=== PATIENT | male | born 1990 | race Two or more races ===

== ENCOUNTER 2021-11-09 17:44 | Emergency (ER) | payer OTHER ==
[~2021-11-09] VITALS: Ht 172.7 cm; Wt 83.9 kg
[2021-11-10] MEDS ORDERED: KETO10TA2 PO (02:03)
[2021-11-10] MEDS ORDERED: NORFLEX100MG PO (02:03)
== END 2021-11-10 02:12 ==
LOC: ER 17:44
DX: M54.9 Dorsalgia, unspecified (principal)

== ENCOUNTER 2022-07-26 15:28 | Emergency (ER) | payer OTHER ==
[~2022-07-26] VITALS: Ht 180.3 cm; Wt 83.9 kg
[~2022-07-26 15:28] MED LIST: KETO10TA2 PO; NORFLEX100MG PO
[2022-07-26] MEDS ORDERED: KETO10TA2 PO (18:54)
[2022-07-26] MEDS ORDERED: NORFLEX100MG PO (18:54)
== END 2022-07-26 19:07 | disposition home or self-care (01) ==
LOC: ER 15:28
DX: R07.89 Other chest pain (principal); K76.0 Fatty (change of) liver, not elsewhere classified

== ENCOUNTER 2022-12-01 12:00 | Emergency (ER) | payer OTHER ==
[~2022-12-01] VITALS: Ht 172.7 cm; Wt 83.9 kg
== END 2022-12-01 14:50 | disposition home or self-care (01) ==
LOC: ER 12:00
DX: J03.90 Acute tonsillitis, unspecified (principal)

== ENCOUNTER 2023-02-09 14:00 | Emergency (ER) | payer OTHER ==
[~2023-02-09] VITALS: Ht 172.7 cm; Wt 81.6 kg
[2023-02-09 18:01] LABS: HEMATOCRIT 44.9 % (39.0-48.0); HEMOGLOBIN 15.3 g/dL (13-16.00); MEAN CELL VOLUME 84.2 fL (80.0-100.00); MEAN CORPUSCULAR HEMOGLOBIN 28.6 pg (27.00-32.0); PLATELET COUNT 317 K/uL (150-450); RED BLOOD COUNT 5.34 M/uL (4.00-6.00); RED CELL DISTRIBUTION WIDTH 13.3 % (11.5-14.5)
[2023-02-09 18:27] LABS: ALBUMIN 4.5 gm/dL (3.4-5.0); BILIRUBIN TOTAL 0.73 mg/dL (0.3-1.2); CREATININE SERUM 1.27 mg/dL (0.70-1.30); GFR 66.59; GLOBULINA 4.4 G/DL (2.4-3.5); POTASSIUM 3.76 mEq/L (3.5-5.1); TOTAL PROTEIN 8.9 gm/dL (6.4-8.2)
== END 2023-02-09 20:34 | disposition home or self-care (01) ==
LOC: ER 14:00
PROVIDERS: Emergency Medicine
DX: H66.90 Otitis media, unspecified, unspecified ear (principal); Z87.891 Personal history of nicotine dependence; F12.90 Cannabis use, unspecified, uncomplicated; Z88.8 Allergy status to other drugs, medicaments and biological substances; F41.8 Other specified anxiety disorders